=== PATIENT | male | born 1980 | race African-American/Black ===

== ENCOUNTER → 2019-10-14 | Outpatient (CLI) | payer BC ==
--- NOTE | 2019-10-15 13:43 | KCIC ---
FOOT RIGHT 3V History: Right foot pain. Technique: 3 views right foot. Comparison: None. Findings: Mild hallux valgus. No fracture. Soft tissues unremarkable. Impression: 1. No acute osseous abnormality. Electronically signed by: Brad Rai DO (10/15/2019 1:40 PM) [id number]
== END | disposition home or self-care (01) ==
LOC: KCIC 09:11
PROVIDERS: ATTEND Family Medicine
DX: M20.11 Hallux valgus (acquired), right foot (principal)
CPT/HCPCS: 73630

== ENCOUNTER → 2020-04-01 | Outpatient (CLI) | payer BC ==
--- NOTE | 2020-04-01 12:27 | RAD ---
LUMBAR SPINE 2-3V History: Left sciatica Comparison: None. Findings: 3 views of the lumbar spine are submitted. Lumbar vertebral body stature and AP alignment are maintained. Intervertebral disc spaces are maintained. No acute osseous abnormality is identified by radiographs. Impression: 1. No acute radiographic abnormality is identified. Electronically signed by: Boogie Keith MD (04/01/2020 12:24 PM) [id number]
== END | disposition home or self-care (01) ==
LOC: RAD 11:39
PROVIDERS: ATTEND Family Medicine
DX: M54.32 Sciatica, left side (principal)
CPT/HCPCS: 72100

== ENCOUNTER → 2021-05-19 | Outpatient (CLI) | payer BC ==
[~2021-05-19] MED LIST: IOHEXOL 300 MG/ML 100ML VIAL. IV ONE
--- NOTE | 2021-05-19 13:44 | RAD ---
CT of the pelvis with contrast 05/19/2021 INDICATION: Pelvic pain comparison:: None Discussion: Multidetector CT imaging of the pelvis performed following the administration of IV contrast. Visualized bowel demonstrates no evidence of obstruction or inflammatory change. No free fluid or bret e air is seen in the pelvis. Limited evaluation of the bladder is unremarkable. No evidence of append icitis is identified. No evidence of hernia is identified. No acute osseous changes are identified. IMPRESSION: No CT evidence of acute pelvic abnormality CT DOSING PQRS STATEMENT: One or more of the following individualized dose reduction techniques were utilized for this examinat ion: 1. Automated exposure control 2. Adjustment of the mA and/or kV according to patient size 3. Use of iterative reconstruction technique Electronically signed by: Juan Padilla MD (05/19/2021 1:42 PM) [id number]
== END ==
LOC: CT 10:22
PROVIDERS: ATTEND Family Medicine
DX: R10.2 Pelvic and perineal pain (principal)
CPT/HCPCS: 72193; Q9967